=== PATIENT | male | born 1960 | race African-American/Black ===

== ENCOUNTER 2020-01-30 11:32 | Emergency (ER) | payer OTHER ==
[2020-01-30 11:43] VITALS: BP 143/104; PULSE 92; TEMP 99.6; BMI 27.3
[2020-01-30] MEDS ORDERED: FLUORESCEIN NA 1 EA STRIP OD ONE (12:54)
[2020-01-30] MEDS ORDERED: ACETAMINOPHEN 500 MG TABLET (FP) PO ONE (12:56)
[2020-01-30] MEDS ORDERED: ACETAMINOPHEN 500 MG TABLET (FP) ONE (12:57)
[2020-01-30] MEDS ORDERED: FLUORESCEIN NA 1 EA STRIP ONE (12:57)
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
== END 2020-01-30 16:14 | disposition home or self-care (01) ==
LOC: JERFT 11:32
DX: S09.90XA Unspecified injury of head, initial encounter (principal); S09.93XA Unspecified injury of face, initial encounter
CPT/HCPCS: 70450-TC; 70486-TC; 72125-TC; 99285-25